=== PATIENT | male | born 1985 | race Caucasian/White ===

== ENCOUNTER 2019-09-26 17:48 | Emergency (ER) | payer SELFPAY ==
[~2019-09-26] VITALS: Ht 172.7 cm; Wt 90.9 kg
[2019-09-26 18:21] VITALS: BP 141/97
--- NOTE | 2019-09-26 19:03 | NUR ---
Pt verbalized a desire to leave the ED. Pt reports "I feel fine and I don't think I need to wait any longer." Pt informed it would be best if he waits for provider evaluation prior to leaving. Pt asked "do I have to stay?" Pt informed we cannot force him to stay but that it is best to remain until the provider evaluates his condition, especially due to the allergic reaction. Pt verbalized "okay."
--- NOTE | 2019-09-26 19:15 | NUR ---
While in the room with another patient, the patient and his three family members walked out of the room and stated "I am leaving, I am tired of waiting." Pt informed it is best to stay in the dept. Provider ZURI Chaudhary notified of the patient leaving the dept.
== END 2019-09-26 19:58 | disposition left against medical advice (07) ==
LOC: ER 17:49
DX: T78.40XA Allergy, unspecified, initial encounter (principal); Z53.21 Procedure and treatment not carried out due to patient leaving prior to being seen by health care provider; Y92.89 Other specified places as the place of occurrence of the external cause